=== PATIENT | female | born 1950 | race Caucasian/White ===

== ENCOUNTER 2024-05-24 12:08 | Emergency (ER) | payer MEDICARE, MEDICAID ==
[~2024-05-24] VITALS: Ht 160 cm; Wt 135.0 kg
[2024-05-24 12:23] VITALS: BP 166/84; PULSE 95; RESP 18; TEMP 36.8; O2SAT 98
== END 2024-05-24 13:40 | disposition left against medical advice (07) ==
LOC: ER 12:08
DX: M79.669 Pain in unspecified lower leg (principal); Z53.21 Procedure and treatment not carried out due to patient leaving prior to being seen by health care provider